=== PATIENT | male | born 1955 | race Caucasian/White ===

== ENCOUNTER → 2016-08-06 | Outpatient (CLI) | payer MEDICARE, SELFPAY ==
[~2016-08-06] MED LIST: ZOCOR20 MG PO
== END ==
LOC: CT 08:20
DX: C34.12 Malignant neoplasm of upper lobe, left bronchus or lung (principal); C77.1 Secondary and unspecified malignant neoplasm of intrathoracic lymph nodes; R91.8 Other nonspecific abnormal finding of lung field; J81.1 Chronic pulmonary edema; E27.8 Other specified disorders of adrenal gland
CPT/HCPCS: 36415; 71260; 82565; 84520; J7050; Q9962